=== PATIENT | female | born 1955 | race Caucasian/White ===

== ENCOUNTER → 2023-07-05 | Outpatient (CLI) | payer BC | END | disposition home or self-care (01) | LOC: LABWHC1 11:55 → EDSTATUS 11:59 | PROVIDERS: ATTEND Orthopaedic Surgery | DX: M25.561 Pain in right knee (principal); Z96.651 Presence of right artificial knee joint; T84.022D Instability of internal right knee prosthesis, subsequent encounter; Y82.9 Unspecified medical devices associated with adverse incidents | CPT/HCPCS: 36415; 85379; 85652; 86140 ==

== ENCOUNTER → 2023-08-21 | Outpatient (CLI) | payer BC ==
[2023-08-21 15:56] LABS: INR 0.9 (<1.2); Partial Thromboplastin Time 22.6 sec (22.0-30.0); Prothrombin Time 10.2 sec (10.0-12.5)
[2023-08-21 16:10] LABS: Bacteria,Urine Rare /hpf; Mucus,Urine Rare /hpf; RBC,Urine 6 /hpf (0-5); Squamous Epithelial Cell,Urine 11 /hpf (0-4); WBC,Urine >182 /hpf (0-5)
[2023-08-21 16:22] LABS: Appearance,Urine Cloudy (Clear); Bilirubin,Urine 1+ (Negative); Color,Urine Yellow; Glucose,Urine (UA) Negative (Negative); Ketones,Urine Negative (Negative); PH, Urine 5.5 (5.0-8.0); Protein,Urine Trace (Negative)
[2023-08-21 16:23] LABS: Blood,Urine Negative (Negative); Leukocyte Esterase,Urine Large (Negative); Nitrite,Urine Negative (Negative); Urobilinogen,Urine <2.0 mg/dL (<2.0)
[2023-08-21 22:14] LABS: HCT 43.2 % (37.2-46.3); MCH 30.5 pg (27.0-32.0); MCHC 32.4 d/dL (32.0-37.0); MCV 94.1 FL (80.0-97.0); Mean Platelet Volume 11.4 FL (9.5-12.2); NRBC Per 100 WBC 0 X 10*3/uL (0.00-0.01); Platelet Count 214 X 10*3/uL (140-440); RBC 4.59 X 10*6/uL (4.10-5.20)
[2023-08-22 07:59] LABS: ALT 19 U/L (8-44); AST 26 U/L (13-35); Albumin 4.4 d/dL (3.8-4.9); Albumin/Globulin Ratio 1.69 Ratio (1.60-3.17); Alkaline Phosphatase 84 U/L (41-126); BUN/Creat Ratio 24.67 Ratio (12.00-20.00); Blood Urea Nitrogen 22.2 mg/dL (9.0-27.0); Calcium 10.1 mg/dL (8.7-10.3); Carbon Dioxide 26.9 mmol/L (21.6-31.8); Chloride 99 mmol/L (96-109); Globulin 2.6 d/dL (1.6-3.3); Glucose 85 mg/dL (70-110); Potassium 4.4 mmol/L (3.5-5.5); Sodium 137 mmol/L (135-145); Total Bilirubin 0.3 mg/dL (0.3-1.2)
== END | disposition home or self-care (01) ==
LOC: LABPAT 14:11
PROVIDERS: ATTEND Orthopaedic Surgery
DX: Z01.812 Encounter for preprocedural laboratory examination (principal); Z96.653 Presence of artificial knee joint, bilateral
CPT/HCPCS: 36415; 80053; 81001; 85027; 85610; 85730; 87070

== ENCOUNTER 2023-09-08 07:30 | Inpatient (IN) | payer BC ==
[~2023-09-08 07:30] MED LIST: ACETAMINOPHEN TAB 500 MG TAB PO PRN; DEXAMETHASONE SOD PHOSPHATE 10 MG/ML 1 ML VIAL IV PRN; DEXAMETHASONE SOD PHOSPHATE 4 MG/ML 1 ML VIAL IV ONE; DOCUSATE 100 MG CAP PO PRN; FAMOTIDINE 20 MG/2 ML VIAL IVP PRN; HYDROmorphone 0.5 MG/0.5 ML SYRINGE IVP PRN; KETOROLAC 15 MG/ML 1 ML VIAL IVP PRN; LIDOCAINE 1% (10MG/ML) FOR IV START INTRADERMA PRN; MIDAZOLAM 2 MG/2 ML VIAL IV PRN; ONDANSETRON 4 MG/2 ML VIAL IVP ONE; ONDANSETRON 4 MG/2 ML VIAL IVP PRN; ROPIVACAINE/EPI/CLONIDINE/KET 50 ML SYRINGE MISCELLANE PRN; TRANEXAMIC 1,000 MG/100ML-NACL 1,000 MG in SALINE 1 100ML.BAG IV PRN; TRANEXAMIC 1,000 MG/100ML-NACL 1,000 MG in SALINE 1 100ML.BAG IVPB PRN; oxyCODONE ER 10 MG TAB.ER.12H PO PRN
[2023-09-08] MEDS: LACTATED RINGERS 1,000 ML IV SCH (09:21)
[2023-09-08] MEDS ORDERED: MIDAZOLAM 2 MG/2 ML VIAL IVP ONE (09:51)
[2023-09-08] MEDS ORDERED: VANCOMYCIN 1,000 MG VIAL MISCELLANE ONE (13:51)
--- NOTE | 2023-09-08 13:51 | FL ---
EXAMINATION TYPE: FL guidance operating room DATE OF EXAM: 09/08/2023 HISTORY: Fluoroscopy time Total dose area product (DAP) in uGy*m?, mGy*cm? (or similar): 0.6225 IMPRESSION: 1. Fluoroscopy time.
[2023-09-08] MEDS ORDERED: LACTATED RINGERS 1,000 ML IV ONE (13:58)
[2023-09-08] MEDS ORDERED: ONDANSETRON 4 MG/2 ML VIAL IVP PRN (14:52)
[2023-09-08] MEDS ORDERED: MAGNESIUM HYDROXIDE 2,400 MG/30 ML CUP PO PRN (14:52)
[2023-09-08] MEDS ORDERED: diazePAM 5 MG TAB PO PRN (14:52)
[2023-09-08] MEDS ORDERED: HYDROcodone/APAP 5-325MG 1 EACH TAB PO PRN (14:52)
[2023-09-08] MEDS ORDERED: NALOXONE 0.4 MG/ML 1 ML VIAL IV PRN (14:52)
[2023-09-08] MEDS ORDERED: bisacodyL 10 MG SUPP RECTAL PRN (14:52)
[2023-09-08] MEDS ORDERED: HYDROmorphone 0.5 MG/0.5 ML SYRINGE IVP ONE ×3 (14:58→15:30)
--- NOTE | 2023-09-08 15:12 | P.OP ---
Date of Procedure: 09/08/23 Preoperative Diagnosis: 1. Global instability right total knee replacement 2. BMI 39.4 Postoperative Diagnosis: 1. Global instability right total knee replacement 2. Aseptic loosening right tibial baseplate 3. BMI 39.4 Procedure(s) Performed: 1. Right revision total knee replacement, femoral and tibial components 2. Application of negative pressure incisional wound VAC, right knee, less than 50 cm, incision measuring 20 cm Modifier 22 for increased procedural complexity: Justification: This operation required significantly more time, work, and procedural complexity than a standard primary or revision total joint arthroplasty. Specifically the prior traumatic changes and or surgical procedure left a significantly altered surgical field with resultant scar tissue, adhesions, and altered anatomy that required a longer and more difficult and complex surgical dissection. This patient required: Extensile exposure requiring meticulous and extensive debridement due to prior failed surgery and contractures Technically demanding removal of prior hardware Significantly prolonged operative time Increased BMI (39.4) and challenging body habitus All of the above result in a physically and mentally challenging operative procedure that in my professional opinion necessitates a 30% increase above standard the schedule Implants: 1. Mchenry triathlon TS Size 5 femur with [id number] stem and 10-mm augments distal medial and lateral 2. Mchenry triathlon size #4 universal tibial baseplate with 12 x 50 mm stem and 5 mm augments medially and laterally 3. Mchenry size B tibial cone 4. Randolph size #4 PS polyethylene, 13 mm Anesthesia: CARMEN, regional Surgeon: Kadeem Hood Estimated Blood Loss (ml): 300 IV fluids (ml): 100 Pathology: other (Multiple deep cultures) Condition: stable Disposition: PACU Indications for Procedure: The patient is a very pleasant 68-year-old female who previously underwent a right total knee replacement. She initially did well but eventually developed pain and feelings of instability. She presented to my office to discuss treatment options. Her x-rays showed a cemented Lilliam implant with possible loosening of the tibial baseplate. Clinically she had global instability. Preoperatively inflammatory markers were obtained and both the CRP and ESR were normal. Her knee was also aspirated and there was no sign of infection. Given the global instability and possible loosening we discussed both an isolated polyethylene liner if the implants were well fixed versus a full revision if the implants were unstable or loose. She provided her verbal consent to go forward with surgery. We discussed potential risks and complications at length in the office. Risks discussed included: risks from anesthesia, superficial site surgical infection, acute and/or chronic periprosthetic joint infection, delayed wound healing, drainage, wound necrosis, instability, stiffness, stiffness requiring manipulation and/or revision surgery, damage to local blood vessels or nerves, aseptic loosening of the implants, extensor mechanism issues including disruption, patellar maltracking, avascular necrosis etc., continued or worsened knee pain, generalized dissatisfaction with surgical outcome, need for revision surgery, an inability to regain preinjury level of function, DVT, PE, other medical complications, and possibly loss of life or limb. The patient voiced their understanding that while these are the most common complications other less common complications are possible. They provided both their verbal and written consent to go forward with surgery Operative Findings: There is no sign of deep purulence or infection. Cultures were taken. The tibial baseplate was grossly loose. Description of Procedure: The patient was identified in preoperative holding and the correct right leg was marked with my initials. I reviewed the consent form with the patient and all of her questions were answered. Patient was given a block by anesthesia. She was then brought back to the operating room where general anesthetic was given. Preoperative antibiotics were also administered. Once the patient was under anesthesia I performed an exam of her right leg. She had global instability in extension, mid flexion, and flexion. The tourniquet was then applied to the proximal aspect of the right leg. The contralateral leg was secured to the table with foam, a blue towel, and tape. Positioners were placed to allow 90 of knee flexion. The leg was placed in a leg hermosillo and nonsterile drapes were applied followed by a presurgical Scrub with a chlorhexidine scrub brush. The right leg was then prepped and draped in the standard sterile fashion. Prior to starting surgery timeout was performed identifying the correct patient, operative extremity, and procedure. The patient's leg was then elevated, exsanguinated with an Esmarch bandage, and the tourniquet was inflated to 275 mmHg. I began by outlining the scar on the anterior aspect of her knee. Skin incision was made directly over the scar extending the incision proximally and distally for 1 cm. Normal tissue planes were identified proximally in a subfascial flap was created medially. A medial parapatellar arthrotomy was performed. There was a large martinez of clear synovial fluid. Posterior medial dissection was carried around the posteromedial tibia. The femur appeared to be well fixed but there was gross movement of the tibial baseplate. Due to the amount of gross motion of the tibial baseplate I elected to proceed with a fall on revision. Both the medial and lateral gutters were created with electrocautery down to the intermuscular septum. She was sent for culture. I then carefully develop the interval between the implant and cement on the femur and carefully removed the femoral implant with minimal bone loss. I then exposed the tibia and gently subluxed the baseplate anterior. I again debonded the baseplate taking care to develop the interface between the cement and baseplate. The leg was brought into extension and using a bone tamp I carefully removed the tibial baseplate. The tibia was then exposed. Remaining cement was removed with a quarter-inch osteotome taking care to not inadvertently remove bone. Access to the canal was gained and then I sequentially reamed until I had stability with the reamer. A cutting block was placed over the intramedullary reamer and a freshen up cut was made through the cut guide. I then sized the tibia to a size 4. The baseplate was appropriately rotated using the tibial tubercles are reference, pinned, and the heel was punched. The intramedullary guide was then placed back into the tibia and I reamed for a size B cone. Attention was then turned to the femur. I gained access to the intramedullary canal. I then sequentially reamed until stability was achieved. A cut guide was placed and a freshen up cut of the distal femur was then made. I sized the femur to a size 5. I then placed the distal cutting block matching rotation to the epicondylar access. I then made the anterior cut, posterior cut, chamfer cuts. Box cutting guide was then applied, pinned and made. A size 5 femur with a 100 mm stem trial was placed. I then trialed different poly-sizes and augment combinations until the knee was stable. All trial implants were removed. The wound was thoroughly irrigated with pulsatile lavage. Cement restrictors were placed in the tibia and femur. Final implants were dispensed. I then proceeded in a staged fashion starting with the tibia. Cement was placed into the tibia using a cement gun and pressurized once it had reached appropriate consistency. The tibial baseplate was gently tapped into place and held until the cement had hardened. The femur was then prepared and a second batch of cement was mixed. Once the cement had reached appropriate consistency it was pressurized using a cement gun into the femur. The femoral implant was then placed and gently tapped to fully seat. A trial polyliner was placed and the knee was held in extension until the femoral cement had hardened. I then trialed different poly-liners until I was happy with a 13 mm poly-. The trial poly-was removed and the wound was thoroughly irrigated. The final polyliner was gently tapped into place. The tourniquet was let down. All bleeders were controlled with electrocautery. The wound was thoroughly irrigated with pulsatile lavage. A 3 minute soak with dilute Betadine was performed. The knee was again irrigated with pulsatile lavage. A chlorhexidine solution was then used to irrigate the wound. A final rinse was performed with pulsatile lavage and sterile saline. 2 g of vancomycin powder was placed deep within the wound. A deep Hemovac drain was applied. The wound was then closed in layers. Due to this being a revision an incisional wound VAC was applied over the incision measuring 20 cm. A drain sponge was also applied. The drapes were taken down and I verified that all instrument, sponge, and sharp counts were correct. The patient was awoken from her anesthetic, transferred from the or table to a gurney, and brought to recovery having tolerated the procedure well. Plan: The patient is going to be admitted for pain control and IV antibiotics. She can weight-bear as tolerated on her right leg. She will receive 2 doses of postoperative Ancef and then will be transitioned to doxycycline. DVT prophylaxis with aspirin 81 mg twice a day. Internal medicine for perioperative medical management.
--- NOTE | 2023-09-08 15:46 | XR ---
EXAMINATION TYPE: XR knee limited, 2 views RT DATE OF EXAM: 09/08/2023 Comparison: None Clinical History: 68-year-old female Evaluation for Postop abnormality and alignment Findings: 2 views showing revision, hinged, short stem right total knee arthroplasty. Both distal femoral and p roximal tibial components of the prosthesis appear well seated without periprosthetic fracture. Align ment grossly anatomic. Anterior soft tissue swelling with scattered soft tissue air as well as intra- articular air related to recent operation. A surgical drain is also in place. Impression: Uncomplicated postoperative appearance of the revision, hinged, short stemmed, right total knee arthr oplasty.
[2023-09-08] MEDS: HYDROmorphone 1 MG/ML 1 ML SYRINGE IVP PRN (16:50)
[2023-09-08] MEDS: SODIUM CHLORIDE 0.9% 1,000 ML IV SCH (16:51)
--- NOTE | 2023-09-08 18:17 | P.HPIM ---
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 Patient seen and examined at bedside. She is having some lightheadedness when going to the bathroom. She does have some postoperative nausea as well but has not been vomiting. She denies any chest pain or shortness of breath. She has no personal history of venous thromboembolism, however her brother has a history of blood clots and was found to have prothrombin 2010 a mutation and therefore she was tested and also found to have mutation. Vital signs reviewed General: nontoxic, no distress, appears at stated age Derm: warm, dry Cardiovascular: S1S2 reg, no murmur Lungs: clear to auscultation bilateral, no rhonchi, no rales, no wheeze, no accessory muscle use Abdominal: soft, nontender to palpation, no guarding, no appreciable organomegaly, normal bowel sounds Ext: no gross muscle atrophy, Hemovac in place right knee Neuro: CN II-XII grossly intact, no focal neuro deficits Psych: Alert, oriented, appropriate affect Assessment/Plan: 68-year-old female status post right total knee arthroplasty Patient with known 2010a mutation -Suggest possible low-dose Eliquis at 2.5 mg by mouth twice daily for postop DVT prophylaxis given the patient's inherited thrombophilia condition. Awaiting call back for orthopedic surgery. Patient currently treated with aspirin 81 mg twice daily -Discussed with patient signs and symptoms of DVT including worsening swelling, redness, erythema, and calf pain. Hypertension Dyslipidemia -Resume Lopressor 50 mg twice daily -Atorvastatin 40 mg daily Data Review: Preoperative labs reviewed with hemoglobin 14, hematocrit 0.9 Thank you for allowing us to participate in the care of this pleasant patient. Do not hesitate to contact us with questions. Someone can be reached from the [facility] hospitalist group all hours of the day at [phone] or via [employer] This dictation was prepared using [employer] voice recognition software. Though every attempt is made to correct errors during dictation some may still exist. Past Medical History Past Medical History: Hyperlipidemia, Hypertension, Osteoarthritis (OA) Additional Past Medical History / Comment(s): gene variant that makes pt. susceptible to blood clots head, neck, legs - prothrombin 56823W mutation (tested 2021), no blood thinner needed, sinus H/A, heart palpitaions - sees Dank Busby - treated w/ metoprolol History of Any Multi-Drug Resistant Organisms: None Reported Past Surgical History: Hysterectomy, Orthopedic Surgery Additional Past Surgical History / Comment(s): sinus surgery 30 yrs. ago, Rt. TKA 2015, 7-8 foot surgeries over 40 yrs. - most recent Lt. foot hardware removal 2021 Past Anesthesia/Blood Transfusion Reactions: No Reported Reaction, Postoperative Nausea & Vomiting (PONV) Past Psychological History: No Psychological Hx Reported Smoking Status: Former smoker Past Alcohol Use History: Occasional Past Drug Use History: None Reported - Past Family History Brother(s) Family Medical History: Deep Vein Thrombosis (DVT) Mother Family Medical History: Dementia, Deep Vein Thrombosis (DVT), Hypertension Additional Family Medical History / Comment(s): brain aneurysm. age 78 Father Family Medical History: Coronary Artery Disease (CAD), Liver Disease Additional Family Medical History / Comment(s): CABG X3. age 82 Medications and Allergies Home Medications Medication Instructions Recorded Confirmed Type Acetaminophen [Tylenol Arthritis] 1 tab PO Q6HR PRN 09/05/23 09/08/23 History Ascorbic Acid [Vitamin C] 4 tab PO DAILY 09/05/23 09/08/23 History Aspirin 81 mg PO DAILY 09/05/23 09/08/23 History Biotin [Fivv-Ejwj-Thkdu] 10,000 mcg PO DAILY 09/05/23 09/08/23 History Calcium Carbonate/Vitamin D3 2 tab PO DAILY 09/05/23 09/08/23 History [Calcium 500 mg Chewable Tablet] Etodolac [Lodine] 400 mg PO BID 09/05/23 09/08/23 History Metoprolol Tartrate [Lopressor] 50 mg PO BID 09/05/23 09/08/23 History Multivitamin [Multivitamins Adult 1 tab PO DAILY 09/05/23 09/08/23 History Gummies] Mupirocin [Bactroban Nasal 1 applic TOPICAL TID 09/05/23 09/08/23 History Ointment 2% (with applicator)] Rosuvastatin [Crestor] 20 mg PO DAILY 09/05/23 09/08/23 History Allergies Allergy/AdvReac Type Severity Reaction Status Date / Time cephalexin [From Keflex] Allergy Unknown Verified 09/08/23 09:21 latex Allergy Rash/Hives Verified 09/08/23 09:21 Physical Exam Osteopathic Statement: *. No significant issues noted on an osteopathic structural exam other than those noted in the History and Physical/Consult. Vitals: Vital Signs Temp Pulse Resp BP BP Pulse Ox 09/08/23 15:55 90 16 101/49 97 09/08/23 15:40 80 16 104/51 97 09/08/23 15:25 80 16 108/51 97 09/08/23 15:10 89 16 112/56 97 09/08/23 14:55 100 16 110/55 96 09/08/23 14:40 119 H 18 121/86 96 09/08/23 10:00 59 L 16 129/63 97 09/08/23 09:17 97.3 F L 64 17 133/68 97 Intake and Output 09/08/23 09/08/23 09/08/23 06:59 14:59 22:59 Intake Total 1650 Output Total 300 Balance 1350 Intake: IV 1650 Output: Estimated Blood Loss 300 Other: Voiding Method Bedside Commode # Voids 1 Weight 117.4 kg 117.4 kg Thrombosis Risk Factor Assmnt - Choose All That Apply Any of the Below Risk Factors Present?: Yes Each Factor Represents 1 point: Obesity (BMI >25) Each Risk Factor Represents 2 Points: Age 61-74 years, Major surgery Each Risk Factor Represents 3 Points: Family history of DVT/PE, Positive Prothrombin 56871L Each Risk Factor Represents 5 Points: Elective major lower extremity arthoplasty Thrombosis Risk Factor Assessment Total Risk Factor Score: 16 Thrombosis Risk Factor Assessment Level: High Risk
[2023-09-08] MEDS: HYDROcodone/APAP 10-325MG 1 EACH TAB PO PRN (20:21)
[2023-09-08] MEDS ORDERED: METOCLOPRAMIDE 5 MG/ML 2 ML VIAL IVP STA (20:27)
[2023-09-08] MEDS: BENZOCAINE/MENTHOL LOZENG 1 EACH LOZENGE MUCOUS MEM PRN (20:35)
[2023-09-08] MEDS ORDERED: ASPIRIN 81 MG PO SCH (21:00)
[2023-09-08] MEDS: SENNOSIDES-DOCUSATE SODIUM 1 EACH TAB PO SCH (21:41)
[2023-09-09] MEDS: SODIUM CHLORIDE 0.9% 1,000 ML IV SCH (02:02)
[2023-09-09] MEDS: HYDROmorphone 1 MG/ML 1 ML SYRINGE IVP PRN ×2 (02:12→10:00)
[2023-09-09] MEDS: METOPROLOL TARTRATE 50 MG TAB PO SCH ×3 (02:40→21:07)
[2023-09-09] MEDS: LACTATED RINGERS 1,000 ML IV SCH (04:49)
[2023-09-09] MEDS: HYDROcodone/APAP 10-325MG 1 EACH TAB PO PRN ×3 (06:32→18:53)
[2023-09-09 07:38] LABS: Basophils % (A) 0 %; Eosinophils % (A) 0 %; HCT 33.2 % (34.0-46.0); HGB 11.2 gm/dL (11.4-16.0); Lymphocytes # (A) 0.9 k/uL (1.0-4.8); Lymphocytes % (A) 7 %; MCH 31.6 pg (25.0-35.0); MCHC 33.6 g/dL (31.0-37.0); Mean Platelet Volume 8.7; Monocytes # (A) 0.9 k/uL (0-1.0); Monocytes % (A) 7 %; Neutrophils # (A) 11.4 k/uL (1.3-7.7); Neutrophils % (A) 86 %; Platelet Count 165 k/uL (150-450); RBC 3.53 m/uL (3.80-5.40); RDW 13.1 % (11.5-15.5); WBC 13.3 k/uL (3.8-10.6)
[2023-09-09] MEDS: APIXABAN 2.5 MG TABLET PO SCH ×2 (08:27→21:22)
[2023-09-09] MEDS: ATORVASTATIN 40 MG TAB PO SCH (08:27)
--- NOTE | 2023-09-09 09:10 | P.PN ---
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 Patient seen and examined at bedside. She is doing well and pain is controlled. Was able to eat this morning. Wants to get to chair. Vital signs reviewed General: nontoxic, no distress, appears at stated age Cardiovascular: S1S2 reg, no murmur, positive posterior tibial pulse bilateral, Lungs: Decreased bs bilateral, no rhonchi, no rales , no accessory muscle use Abdominal: soft, nontender to palpation, no guarding, no appreciable organomegaly Ext: no gross muscle atrophy, 1+ edema right LE, no contractures Neuro: CN II-XI grossly intact, no focal neuro deficits Psych: Alert, oriented, appropriate affect Assessment/Plan: Pt is a 68-year-old female status post right total knee arthroplasty Patient with known 2010a mutation - Eliquis 2.5 mg PO BID for DVT prophylaxis Acute blood loss anemia, anticipated outcome of surgery - follow CBC - pre-op Hgb 14. Will repeat in AM Hypertension Dyslipidemia -Lopressor 50 mg twice daily -Atorvastatin 40 mg daily Data Review: Labs reviewed. Includes CBC was remarkable for white blood cell count 13.3, hemoglobin 11.2 Thank you for allowing us to participate in the care of this pleasant patient. Do not hesitate to contact us with questions. Someone can be reached from the [facility] hospitalist group all hours of the day at [phone] or via [employer]. This dictation was prepared using [employer] voice recognition software. Though every attempt is made to correct errors during dictation some may still exist. Objective - Vital Signs Vital signs: Vital Signs Temp 97.6 F 09/09/23 02:00 Pulse 91 09/09/23 02:00 Resp 16 09/09/23 02:00 BP 110/63 09/09/23 02:00 Pulse Ox 97 09/09/23 02:00 FiO2 Intake & Output 09/08/23 09/09/23 09/09/23 18:59 06:59 18:59 Intake Total 1650 Output Total 300 470 Balance 1350 -470 Weight 117.4 kg Intake: IV 1650 Output: Drainage 220 Right 220 Urine 250 Estimated Blood Loss 300 Other: Voiding Method Bedside Commode # Voids 1 2 - Labs CBC & Chem 7: 09/09/23 06:55 Labs: Abnormal Lab Results - Last 24 Hours (Table) 09/09/23 Range/Units 06:55 WBC 13.3 H (3.8-10.6) k/uL RBC 3.53 L (3.80-5.40) m/uL Hgb 11.2 L (11.4-16.0) gm/dL Hct 33.2 L (34.0-46.0) % Neutrophils # 11.4 H (1.3-7.7) k/uL Lymphocytes # 0.9 L (1.0-4.8) k/uL
--- NOTE | 2023-09-09 09:11 | P.PN ---
Subjective Progress Note Date: 09/09/23 Patient is doing well this morning. She has some pain in her right knee but otherwise without complaints. She denies chest pain or shortness of breath. Objective - Vital Signs Vital signs: Vital Signs Temp 97.6 F 09/09/23 02:00 Pulse 91 09/09/23 02:00 Resp 16 09/09/23 02:00 BP 110/63 09/09/23 02:00 Pulse Ox 97 09/09/23 02:00 FiO2 Intake & Output 09/08/23 09/09/23 09/09/23 18:59 06:59 18:59 Intake Total 1650 Output Total 300 470 Balance 1350 -470 Weight 117.4 kg Intake: IV 1650 Output: Drainage 220 Right 220 Urine 250 Estimated Blood Loss 300 Other: Voiding Method Bedside Commode # Voids 1 2 - Exam Patient is resting comfortably in bed. She is alert and able to answer questions. A focused exam of the right lower extremity was conducted. On inspection there is no intact incisional wound VAC with good seal. Her Hemovac drain was removed without difficulty. Her thigh and calf are soft. Distally she is able to actively plantarflex and dorsiflex her ankle and her toes. - Labs CBC & Chem 7: 09/09/23 06:55 Labs: Abnormal Lab Results - Last 24 Hours (Table) 09/09/23 Range/Units 06:55 WBC 13.3 H (3.8-10.6) k/uL RBC 3.53 L (3.80-5.40) m/uL Hgb 11.2 L (11.4-16.0) gm/dL Hct 33.2 L (34.0-46.0) % Neutrophils # 11.4 H (1.3-7.7) k/uL Lymphocytes # 0.9 L (1.0-4.8) k/uL Assessment and Plan Assessment: Postoperative day #1 status post right revision knee replacement for aseptic loosening of the tibial baseplate BMI 39.4 History of prothrombin mutation, increased risk of VTE Plan: 1. Weightbearing as tolerated right lower extremity, up with assistance and a walker 2. DVT prophylaxis with Eliquis 2.5 mg BID x 4 weeks given her history 3. Antibiotic prophylaxis with Ancef 2 doses followed by doxycycline 100 mg twice a day given her history of revision surgery. I have a low index of suspicion of periprosthetic joint infection but we will follow cultures taken intraoperatively. If these become positive we'll consult infectious disease for antibiotic recommendations 4. Appreciate IM assistance with perioperative medical management 5. Physical therapy for gait training and mobilization 6. Dispo: We'll plan on keeping the patient until tomorrow given the extensive nature of her revision surgery for continued pain control and antibiotics. We will monitor her progress and if she does well we'll plan for discharge home tomorrow.
[2023-09-09] MEDS: hydrOXYzine pamoate 25 MG CAP PO PRN (10:01)
[2023-09-09] MEDS: BENZOCAINE/MENTHOL LOZENG 1 EACH LOZENGE MUCOUS MEM PRN ×2 (10:40→17:50)
[2023-09-09] MEDS ORDERED: ARTIFICIAL TEARS-HYPROMELLOSE DROPS 15 ML BTL BOTH EYES PRN (11:44)
--- NOTE | 2023-09-09 19:13 | P.ANPRN ---
Procedure Note - Anesthesia - Nerve Block Performed Right Adductor Canal Single Time Out Performed: Yes Date of Procedure: 09/08/23 Procedure Start Time: :50 Procedure Stop Time: :53 Location of Patient: PreOp Indication: Acute Post-Operative Pain, Requested by Surgeon Sedation Type: Sedate with meaningful contact maintained Preparation: Sterile Prep Position: Supine Needle Types: Pajunk Needle Gauge: 21 Ultrasound used to visualize needle placement: Yes Ultrasound used to observe medication spread: Yes Blood Aspirated: No Pain Paresthesia on Injection Noted: No Resistance on Injection: Normal Image Stored and Saved: Yes Events: Uneventful and Well Tolerated (Ropivacaine 0.5% 30 mL plus dexamethasone 4 mg)
--- NOTE | 2023-09-09 19:15 | P.ANPRN ---
Procedure Note - Anesthesia - Nerve Block Performed Right [place] Single Time Out Performed: Yes Date of Procedure: 09/08/23 Procedure Start Time: :54 Procedure Stop Time: :55 Location of Patient: PreOp Indication: Acute Post-Operative Pain, Requested by Surgeon Sedation Type: Sedate with meaningful contact maintained Preparation: Sterile Prep Position: Supine Needle Types: Pajunk Needle Gauge: 21 Ultrasound used to visualize needle placement: Yes Ultrasound used to observe medication spread: Yes Blood Aspirated: No Pain Paresthesia on Injection Noted: No Resistance on Injection: Normal Image Stored and Saved: Yes Events: Uneventful and Well Tolerated (Ropivacaine 0.5% 25 mL plus dexamethasone 4 mg)
[2023-09-09] MEDS: SENNOSIDES-DOCUSATE SODIUM 1 EACH TAB PO SCH (21:22)
[2023-09-09] MEDS: DOXYCYCLINE 100 MG CAP PO SCH (21:22)
[2023-09-10] MEDS: BENZOCAINE/MENTHOL LOZENG 1 EACH LOZENGE MUCOUS MEM PRN (00:52)
[2023-09-10] MEDS: LACTATED RINGERS 1,000 ML IV SCH (06:11)
[2023-09-10 08:25] LABS: HCT 33.9 % (34.0-46.0); HGB 11.2 gm/dL (11.4-16.0); MCH 31.3 pg (25.0-35.0); MCHC 33.1 g/dL (31.0-37.0); MCV 94.3 fL (80.0-100.0); Platelet Count 118 k/uL (150-450); RDW 13.2 % (11.5-15.5); WBC 8.3 k/uL (3.8-10.6)
--- NOTE | 2023-09-10 08:25 | P.PN ---
Subjective Progress Note Date: 09/10/23 Patient is complaining of pain in her right knee this morning. She states that yesterday she did very well and may have overdone it with physical therapy. His morning she is complaining of pain in the right knee. She also has a sore throat which she attributed to her breathing tube during surgery. She denies chest pain or shortness of breath. Objective - Vital Signs Vital signs: Vital Signs Temp 99.0 F 09/10/23 01:50 Pulse 96 09/10/23 01:50 Resp 17 09/10/23 01:50 BP 102/58 09/10/23 02:58 Pulse Ox 94 L 09/10/23 01:50 FiO2 Intake & Output 09/09/23 09/10/23 09/10/23 18:59 06:59 18:59 Output Total 150 Balance -150 Output: Urine 150 Other: # Voids 4 - Exam Patient is resting comfortably in bed. She is alert and able to answer questions. A focused exam of the right lower extremity was conducted. On inspection she has an intact incisional wound VAC with good seal. Her drain sponges intact. There is moderate swelling in the knee. Her thigh and calf are soft. Femoral nerve function is intact. She is able to actively plantarflex and dorsiflex her ankle and her toes. - Labs CBC & Chem 7: 09/09/23 06:55 Labs: Microbiology - Last 24 Hours (Table) 09/08/23 14:15 Gram Stain - Preliminary Knee - Right Tissue Culture - Preliminary 09/08/23 14:15 Acid Fast Bacilli Smear - Preliminary Knee - Right Assessment and Plan Assessment: Postoperative day #2 status post right revision knee replacement Plan: Continue treatment as outlined yesterday. The patient has increased pain in her knee since her block has worn off which is not surprising given the extent of her revision surgery. We will work on transitioning her from IV to oral pain medications today. I also encouraged her to mobilize with therapy and get into a chair. Due to her pain we'll plan on keeping her until tomorrow. If things change in her pain improves and would like to go home later this afternoon that is fine as well.
[2023-09-10] MEDS ORDERED: SODIUM CHLORIDE 0.9% 500 ML 500 ML IV ONE (08:35)
[2023-09-10] MEDS: HYDROcodone/APAP 10-325MG 1 EACH TAB PO PRN ×2 (10:46→17:11)
[2023-09-10] MEDS: DOXYCYCLINE 100 MG CAP PO SCH ×2 (10:46→19:57)
[2023-09-10] MEDS: ATORVASTATIN 40 MG TAB PO SCH (10:47)
[2023-09-10] MEDS: hydrOXYzine pamoate 25 MG CAP PO PRN ×2 (10:47→17:11)
[2023-09-10] MEDS: APIXABAN 2.5 MG TABLET PO SCH ×2 (10:47→19:57)
--- NOTE | 2023-09-10 13:13 | P.PN ---
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 Patient seen and examined at bedside. She continues to feel slightly lightheaded today as well as flushed and some tightness in her neck. She also complains of some knee pain. She is worried about her blood pressure being slightly low. 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 Borderline low blood pressures hx Hypertension -Check CBC in a.m. as well as basic metabolic profile -Decrease metoprolol to 25 mg twice daily. She did not receive any metoprolol yesterday as it was held based on her parameters. These parameters will continue -Sodium chloride 500 mL bolus now Dyslipidemia -Atorvastatin 40 mg daily Data Review: Labs reviewed from today CBC shows a hemoglobin of 11.2, platelets of 118 Thank you for allowing us to participate in the care of this pleasant patient. Do not hesitate to contact us with questions. Someone can be reached from the [facility] hospitalist group all hours of the day at [phone] or via [employer]. This dictation was prepared using [email or web address] voice recognition software. Though every attempt is made to correct errors during dictation some may still exist. Objective - Vital Signs Vital signs: Vital Signs Temp 99.1 F 09/10/23 07:16 Pulse 92 09/10/23 07:16 Resp 17 09/10/23 07:16 BP 91/50 09/10/23 07:16 Pulse Ox 97 09/10/23 07:16 FiO2 Intake & Output 09/09/23 09/10/23 09/10/23 18:59 06:59 18:59 Output Total 150 Balance -150 Output: Urine 150 Other: # Voids 4 - Labs CBC & Chem 7: 09/10/23 06:12 Labs: Abnormal Lab Results - Last 24 Hours (Table) 09/10/23 Range/Units 06:12 RBC 3.60 L (3.80-5.40) m/uL Hgb 11.2 L (11.4-16.0) gm/dL Hct 33.9 L (34.0-46.0) % Plt Count 118 L (150-450) k/uL Microbiology - Last 24 Hours (Table) 09/08/23 14:15 Gram Stain - Preliminary Knee - Right Tissue Culture - Preliminary 09/08/23 14:15 Acid Fast Bacilli Smear - Preliminary Knee - Right
[2023-09-10] MEDS: METOPROLOL TARTRATE 25 MG TAB PO SCH ×2 (13:39→19:57)
[2023-09-10] MEDS: FLUTICASONE 50MCG/SPRAY NASAL 16GM EA NOSTRIL SCH (17:12)
[2023-09-10] MEDS: SENNOSIDES-DOCUSATE SODIUM 1 EACH TAB PO SCH (19:57)
[2023-09-11] MEDS: HYDROcodone/APAP 10-325MG 1 EACH TAB PO PRN ×4 (00:02→22:09)
[2023-09-11] MEDS: LACTATED RINGERS 1,000 ML IV SCH (06:03)
[2023-09-11 07:21] LABS: HCT 32.4 % (34.0-46.0); HGB 10.9 gm/dL (11.4-16.0); MCH 31.6 pg (25.0-35.0); MCHC 33.6 g/dL (31.0-37.0); Mean Platelet Volume 8.9; Platelet Count 146 k/uL (150-450); RBC 3.45 m/uL (3.80-5.40); WBC 7.6 k/uL (3.8-10.6)
[2023-09-11 07:37] LABS: African American GFR (CKD) >90 (>60 ml/min/1.73 sqM); Anion Gap 7 mmol/L; Blood Urea Nitrogen 18 mg/dL (7-17); Calcium 8.6 mg/dL (8.4-10.2); Carbon Dioxide 22 mmol/L (22-30); Chloride 105 mmol/L (98-107); Glucose 99 mg/dL (74-99); Non-African American GFR(CKD) >90 (>60 ml/min/1.73 sqM); Potassium 4.3 mmol/L (3.5-5.1); Sodium 134 mmol/L (137-145)
--- NOTE | 2023-09-11 07:56 | P.PN ---
Subjective Progress Note Date: 09/11/23 The patient still continues to have in her right knee although it is improving. She still has concerns about low blood pressure. She denies chest pain, shortness of breath, or feeling lightheaded. She is otherwise doing well. Objective - Vital Signs Vital signs: Vital Signs Temp 98.3 F 09/11/23 00:27 Pulse 91 09/11/23 00:27 Resp 16 09/11/23 00:27 BP 108/72 09/11/23 00:27 Pulse Ox 93 L 09/11/23 00:27 FiO2 Intake & Output 09/10/23 09/11/23 09/11/23 18:59 06:59 18:59 Intake Total 1200 Balance 1200 Intake: Intake, IV Titration 1200 Amount Lactated Ringers 1,000 ml 700 @ 20 mls/hr IV .Q24H [facility] Rx#:[id number] Sodium Chloride 0.9% 500 500 ml 500 ml @ 999 mls/hr IV .Q31M [facility] Rx#:[id number] Other: # Voids 3 - Exam Patient is sitting up at bedside in the chair. She is alert and able to answer questions. She is in no apparent distress. A focused exam of the right lower extremity was conducted. Her incisional wound VAC is intact with good seal. The dressing over her drain site is intact with no drainage. Her thigh and calf are soft. She is able to actively dorsiflex and plantarflex her ankle and her toes. - Labs CBC & Chem 7: 09/11/23 07:02 09/11/23 07:02 Labs: Abnormal Lab Results - Last 24 Hours (Table) 09/10/23 09/11/23 09/11/23 Range/Units 06:12 07:02 07:02 RBC 3.60 L 3.45 L (3.80-5.40) m/uL Hgb 11.2 L 10.9 L (11.4-16.0) gm/dL Hct 33.9 L 32.4 L (34.0-46.0) % Plt Count 118 L 146 L (150-450) k/uL Sodium 134 L (137-145) mmol/L BUN 18 H (7-17) mg/dL Microbiology - Last 24 Hours (Table) 09/08/23 14:15 Gram Stain - Preliminary Knee - Right Tissue Culture - Preliminary Assessment and Plan Assessment: Postoperative day #3 status post right revision total knee replacement for aseptic tibial baseplate loosening and global instability Plan: The patient is slowly improving. Her pain is improving on oral medications. Cultures have been negative and I've a low suspicion for infection. We will continue on doxycycline unless her cultures become positive. Appreciate internal medicine and physical therapy assistance. We will plan on keeping her for continued pain management and physical therapy given the extent of her revision surgery.
[2023-09-11] MEDS: APIXABAN 2.5 MG TABLET PO SCH ×2 (08:55→20:30)
[2023-09-11] MEDS: DOXYCYCLINE 100 MG CAP PO SCH ×2 (08:55→20:30)
[2023-09-11] MEDS: METOPROLOL TARTRATE 25 MG TAB PO SCH (08:55)
[2023-09-11] MEDS: ATORVASTATIN 40 MG TAB PO SCH (08:56)
[2023-09-11] MEDS: FLUTICASONE 50MCG/SPRAY NASAL 16GM EA NOSTRIL SCH (08:58)
--- NOTE | 2023-09-11 13:23 | P.PN ---
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 Patient seen and examined at bedside. She reports pain in her right knee. She denies any dizziness, chest pain, SOB or palpitations. CBC Hg 10.9 Plt 146. BMP Na 134, BUN 18. 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 Borderline low blood pressures hx Hypertension -Asymptomatic -Decrease metoprolol to 12.5 mg twice daily. Dyslipidemia -Atorvastatin 40 mg daily Data Review: CBC and BMP as above. Thank you for allowing us to participate in the care of this pleasant patient. Do not hesitate to contact us with questions. Someone can be reached from the [facility] hospitalist group all hours of the day at [phone] or via [email or web address]. Objective - Vital Signs Vital signs: Vital Signs Temp 99.1 F 09/11/23 07:09 Pulse 50 L 09/11/23 07:09 Resp 18 09/11/23 07:09 BP 98/65 09/11/23 07:09 Pulse Ox 94 L 09/11/23 07:09 FiO2 Intake & Output 09/10/23 09/11/23 09/11/23 18:59 06:59 18:59 Intake Total 1200 Balance 1200 Intake: Intake, IV Titration 1200 Amount Lactated Ringers 1,000 ml 700 @ 20 mls/hr IV .Q24H [facility] Rx#:[id number] Sodium Chloride 0.9% 500 500 ml 500 ml @ 999 mls/hr IV .Q31M [facility] Rx#:[id number] Other: Voiding Method Toilet # Voids 3 2 - Labs CBC & Chem 7: 09/11/23 07:02 09/11/23 07:02 Labs: Abnormal Lab Results - Last 24 Hours (Table) 09/11/23 09/11/23 Range/Units 07:02 07:02 RBC 3.45 L (3.80-5.40) m/uL Hgb 10.9 L (11.4-16.0) gm/dL Hct 32.4 L (34.0-46.0) % Plt Count 146 L (150-450) k/uL Sodium 134 L (137-145) mmol/L BUN 18 H (7-17) mg/dL Microbiology - Last 24 Hours (Table) 09/08/23 14:15 Gram Stain - Preliminary Knee - Right Tissue Culture - Preliminary
[2023-09-11] MEDS: BENZOCAINE/MENTHOL LOZENG 1 EACH LOZENGE MUCOUS MEM PRN (19:55)
[2023-09-11] MEDS: SENNOSIDES-DOCUSATE SODIUM 1 EACH TAB PO SCH (20:30)
[2023-09-11] MEDS: METOPROLOL TARTRATE 12.5 MG TAB PO SCH (20:31)
[2023-09-11] MEDS: hydrOXYzine pamoate 25 MG CAP PO PRN (22:10)
[2023-09-12] MEDS: HYDROcodone/APAP 10-325MG 1 EACH TAB PO PRN ×3 (05:00→20:04)
[2023-09-12] MEDS: LACTATED RINGERS 1,000 ML IV SCH (05:38)
[2023-09-12] MEDS: DOXYCYCLINE 100 MG CAP PO SCH ×2 (08:15→20:04)
[2023-09-12] MEDS: FLUTICASONE 50MCG/SPRAY NASAL 16GM EA NOSTRIL SCH (08:15)
[2023-09-12] MEDS: ATORVASTATIN 40 MG TAB PO SCH (08:15)
[2023-09-12] MEDS: METOPROLOL TARTRATE 12.5 MG TAB PO SCH ×2 (08:15→20:04)
[2023-09-12] MEDS: APIXABAN 2.5 MG TABLET PO SCH ×2 (08:15→20:04)
--- NOTE | 2023-09-12 10:41 | P.PN ---
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 She is currently admitted under orthopedic surgery team status post right total knee replacement. Surgical procedure was completed on 09/08/[address] Hood. We have been consulted for medical management throughout patient's hospitalization. Physical exam: Patient seen and fully evaluated at the bedside this morning. Patient complaining of constipation. Patient reports last bowel movement was prior to surgery. She does report passing flatus and denies abdominal pain. Vital signs reviewed and stable. General: Nontoxic, no distress and appears stated age. Derm: Skin warm and dry, normal coloration for ethnicity. Head: Atraumatic, normocephalic and symmetric. Eyes: EOMs intact, no lid lag, and anicteric sclera Mouth: no lip lesions, mucus membranes moist Cardiovascular: regular rate and rhythm with normal S1S2, no murmur, positive posterior tibial pulses bilaterally, and cap refill < 2 seconds. Lungs: Respirations even, regular, and unlabored on room air. Lungs CTA bilaterally, no rhonchi, no rales, no wheezing, and no accessory muscle usage. Abdominal: soft, nontender to palpation, no guarding, no appreciable organomegaly Ext: ROM intact. No gross muscle atrophy, no edema, no contractures Neuro: Speech clear, face symmetrical and CN II-XII grossly intact with no noted focal neuro deficits Psych: Alert and oriented to person, place, time, and situation. Appropriate and pleasant affect. Assessment and Plan of Care: Constipation Patient given milk of magnesia and this morning, discussed with RN patient to receive Dulcolax suppository. Continue with aggressive bowel regimen, monitor I's and O's for resolution of constipation. Acute postoperative blood loss anemia Preoperative hemoglobin of 14.0 postoperative hemoglobin was trended and stable at 11.2, 11.2, and 10.9. This is a staple and expected finding. No active bleeding, no need for further monitoring or interventions. Hypertension Blood pressure stable on current medication regimen. Patient to continue with metoprolol 12.5 mg twice daily Hyperlipidemia Patient to continue with rosuvastatin 20 mg daily. Status post right total knee arthroplasty Management per primary admitting orthopedic surgery team including DVT prophylaxis, pain management, wound/dressing care, weightbearing, and PT/OT. Data reviewed: Vital signs reviewed. Blood pressure 102/68, heart rate 85, respiratory rate 14, temp 97.4F, SpO2 98% on room air. Patient is medically optimized for discharge with no further needs once cleared by primary admitting orthopedic surgery team. Thank you for allowing us to participate in the care of this pleasant patient. Do not hesitate to contact us with questions. Someone can be reached from the [facility] hospitalist group all hours of the day at [phone] or via [email or web address]. Patient was seen independently by Nurse Pracitioner. This document was prepared using [employer] dictation software. Please allow for errors in surface plate finisher, while rare they do occur. Objective - Vital Signs Vital signs: Vital Signs Temp 97.4 F L 09/12/23 07:07 Pulse 85 09/12/23 07:07 Resp 14 09/12/23 07:07 BP 102/68 09/12/23 07:07 Pulse Ox 98 09/12/23 07:07 FiO2 Intake & Output 09/11/23 09/12/23 09/12/23 18:59 06:59 18:59 Intake Total 1080 Balance 1080 Intake: Oral 1080 Other: Voiding Method Toilet # Voids 4 1 - Labs CBC & Chem 7: 09/11/23 07:02 09/11/23 07:02 Labs: Microbiology - Last 24 Hours (Table) 09/08/23 14:15 Gram Stain - Preliminary Knee - Right Tissue Culture - Preliminary
--- NOTE | 2023-09-12 17:46 | P.PN ---
Subjective Progress Note Date: 09/12/23 Overall the patient is doing much better this evening. Her pain is significantly improved. Her main issue today has been urinary retention. Objective - Vital Signs Vital signs: Vital Signs Temp 98.6 F 09/12/23 13:50 Pulse 86 09/12/23 13:50 Resp 18 09/12/23 13:50 BP 113/72 09/12/23 13:50 Pulse Ox 96 09/12/23 13:50 FiO2 Intake & Output 09/11/23 09/12/23 09/12/23 18:59 06:59 18:59 Intake Total 1080 Balance 1080 Intake: Oral 1080 Other: Voiding Method Toilet # Voids 4 1 - Exam The patient is sitting up comfortably in a chair next to her bed. She is alert and able to answer questions. A focused exam of the right lower stomach was conducted. On inspection she has an intact incisional wound VAC with good seal. Her thigh and calf are soft. Her drain sponges intact. She is able to actively plantarflex and dorsiflex her ankle and her toes. - Labs CBC & Chem 7: 09/11/23 07:02 09/11/23 07:02 Labs: Microbiology - Last 24 Hours (Table) 09/08/23 14:15 Gram Stain - Preliminary Knee - Right Tissue Culture - Preliminary Assessment and Plan Assessment: Postoperative day #4 status post right revision total knee arthroplasty aseptic loosening and global instability Plan: The patient can history improved. Her pain is much better. She's been ambulating without too much difficulty. We're going to keep her one more night due to urinary retention. If she is doing well we'll plan on discharge home tomorrow.
[2023-09-12] MEDS: SENNOSIDES-DOCUSATE SODIUM 1 EACH TAB PO SCH (20:04)
[2023-09-12] MEDS: hydrOXYzine pamoate 25 MG CAP PO PRN (20:08)
[2023-09-13] MEDS: HYDROcodone/APAP 10-325MG 1 EACH TAB PO PRN ×2 (05:08→11:04)
[2023-09-13] MEDS: LACTATED RINGERS 1,000 ML IV SCH (06:29)
--- NOTE | 2023-09-13 07:33 | P.DS ---
Providers Date of admission: 09/08/23 08:39 Attending physician: Kadeem Hood Consults: 09/08/23 14:52 Consult Physician Routine Consulting Provider: Kristen Yee Consult Reason/Comments: post op medical management Do you want consulting provider notified?: Yes Primary care physician: Davie Youngblood MD Hospital Course: The patient is a very pleasant 68-year-old female who was admitted last Moi following a right revision knee replacement. Following surgery she was admitted to the surgical floor in stable condition. She received 2 doses of IV antibiotics and was then started on oral doxycycline. Her revision appeared to be aseptic and cultures remained negative throughout the course of her hospitalization. Internal medicine was consulted for perioperative medical management. The patient worked with physical therapy and did relatively well. She ultimately was cleared for discharge home. Plan - Discharge Summary Discharge Rx Participant: Yes New Discharge Prescriptions: New Apixaban [Eliquis] 2.5 mg PO BID 30 Days #60 tab Omeprazole [PriLOSEC] 40 mg PO DAILY #30 cap HYDROcodone/APAP 5-325MG [Rexford 5-325] 1 - 2 tab PO Q6HR PRN #32 tab PRN Reason: Pain Docusate [Colace] 100 mg PO BID #28 capsule Doxycycline Monohydrate 100 mg PO BID #28 cap Continue Rosuvastatin [Crestor] 20 mg PO DAILY Biotin [Gnfm-Mhkr-Lindm] 10,000 mcg PO DAILY Calcium Carbonate/Vitamin D3 [Calcium 500 mg Chewable Tablet] 2 tab PO DAILY Aspirin 81 mg PO DAILY Metoprolol Tartrate [Lopressor] 50 mg PO BID Multivitamin [Multivitamins Adult Gummies] 1 tab PO DAILY Ascorbic Acid [Vitamin C] 4 tab PO DAILY Mupirocin [Bactroban Nasal Ointment 2% (with applicator)] 1 applic TOPICAL TID Acetaminophen [Tylenol Arthritis] 1 tab PO Q6HR PRN PRN Reason: Pain No Action Etodolac [Lodine] 400 mg PO BID Discharge Medication List Acetaminophen [Tylenol Arthritis] 1 tab PO Q6HR PRN 09/05/23 [History] Ascorbic Acid [Vitamin C] 4 tab PO DAILY 09/05/23 [History] Aspirin 81 mg PO DAILY 09/05/23 [History] Biotin [Iqvd-Zauy-Blcru] 10,000 mcg PO DAILY 09/05/23 [History] Calcium Carbonate/Vitamin D3 [Calcium 500 mg Chewable Tablet] 2 tab PO DAILY 09/05/23 [History] Etodolac [Lodine] 400 mg PO BID 09/05/23 [History] Metoprolol Tartrate [Lopressor] 50 mg PO BID 09/05/23 [History] Multivitamin [Multivitamins Adult Gummies] 1 tab PO DAILY 09/05/23 [History] Mupirocin [Bactroban Nasal Ointment 2% (with applicator)] 1 applic TOPICAL TID 09/05/23 [History] Rosuvastatin [Crestor] 20 mg PO DAILY 09/05/23 [History] Apixaban [Eliquis] 2.5 mg PO BID 30 Days #60 tab 09/09/23 [Rx] Docusate [Colace] 100 mg PO BID #28 capsule 09/09/23 [Rx] Doxycycline Monohydrate 100 mg PO BID #28 cap 09/09/23 [Rx] HYDROcodone/APAP 5-325MG [Rexford 5-325] 1 - 2 tab PO Q6HR PRN #32 tab 09/09/23 [Rx] Omeprazole [PriLOSEC] 40 mg PO DAILY #30 cap 09/09/23 [Rx] Follow up Appointment(s)/Referral(s): [facility], [NON-STAFF] - 1-2 Days Kadeem Hood MD [Medical Doctor] - 2 Weeks Activity/Diet/Wound Care/Special Instructions: 1. Weight-bear as tolerated on your operative extremity unless instructed otherwise. Use a walker or other assistive device to ambulate. 2. Leave surgical dressing in place. If your dressing becomes saturated with blood, there is drainage, or the dressing becomes loose please contact the office. 3. It is okay to shower with your surgical dressing, but do not submerge in water (no hot tubs, bath's, swimming etc.) 4. Make sure to take her blood clot prevention medication as prescribed (aspirin, Eliquis, Xarelto, and Plavix are commonly prescribed medications for blood clot prevention) 5. While taking Rexford or Percocet for pain make sure you're taking a stool softener (Colace) and drink lots of water. 6. Keep all follow-up appointments as scheduled. You will usually be seen in 1-2 weeks following surgery. 7. Please contact the office with any questions or concerns [phone] Discharge Disposition: HOME SELF-CARE
[2023-09-13] MEDS: ATORVASTATIN 40 MG TAB PO SCH (08:31)
[2023-09-13] MEDS: METOPROLOL TARTRATE 12.5 MG TAB PO SCH (08:31)
[2023-09-13] MEDS: DOXYCYCLINE 100 MG CAP PO SCH (08:32)
[2023-09-13] MEDS: APIXABAN 2.5 MG TABLET PO SCH (08:32)
[2023-09-13] MEDS: FLUTICASONE 50MCG/SPRAY NASAL 16GM EA NOSTRIL SCH (08:33)
[2023-09-13 08:54] VITALS: BP 103/49; PULSE 82; RESP 15; TEMP 97.8
[2023-09-13] MEDS: hydrOXYzine pamoate 25 MG CAP PO PRN (11:09)
--- NOTE | 2023-09-13 17:59 | P.PN ---
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 She is currently admitted under orthopedic surgery team status post right total knee replacement. Surgical procedure was completed on 09/08/[address] Hood. We have been consulted for medical management throughout patient's hospitalization. Physical exam: Patient seen and fully evaluated at the bedside this morning. Patient reports full resolution of previous reported constipation. She reports moving slowly but steady and denies having any other complaints, concerns, or needs at this time. Vital signs reviewed and stable. General: Nontoxic, no distress and appears stated age. Derm: Skin warm and dry, normal coloration for ethnicity. Head: Atraumatic, normocephalic and symmetric. Eyes: EOMs intact, no lid lag, and anicteric sclera Mouth: no lip lesions, mucus membranes moist Cardiovascular: regular rate and rhythm with normal S1S2, no murmur, positive posterior tibial pulses bilaterally, and cap refill < 2 seconds. Lungs: Respirations even, regular, and unlabored on room air. Lungs CTA bilaterally, no rhonchi, no rales, no wheezing, and no accessory muscle usage. Abdominal: soft, nontender to palpation, no guarding, no appreciable organomegaly Ext: ROM intact. No gross muscle atrophy, no edema, no contractures Neuro: Speech clear, face symmetrical and CN II-XII grossly intact with no noted focal neuro deficits Psych: Alert and oriented to person, place, time, and situation. Appropriate and pleasant affect. Assessment and Plan of Care: Constipation, resolved Patient given milk of magnesia and this morning, discussed with RN patient to receive Dulcolax suppository. Continue with aggressive bowel regimen, monitor I's and O's for resolution of constipation. Acute postoperative blood loss anemia, stable Preoperative hemoglobin of 14.0 postoperative hemoglobin was trended and stable at 11.2, 11.2, and 10.9. This is a staple and expected finding. No active bleeding, no need for further monitoring or interventions. Hypertension Blood pressure stable on current medication regimen. Patient to continue with metoprolol 12.5 mg twice daily Hyperlipidemia Patient to continue with rosuvastatin 20 mg daily. Status post right total knee arthroplasty Management per primary admitting orthopedic surgery team including DVT prophylaxis, pain management, wound/dressing care, weightbearing, and PT/OT. Data reviewed: Vital signs reviewed and stable with blood pressure 103/49, heart rate 82, respiratory rate 15, temp 97.8F, SpO2 of 96% on room air. Patient is medically optimized for discharge with no further needs once cleared by primary admitting orthopedic surgery team. Thank you for allowing us to participate in the care of this pleasant patient. Do not hesitate to contact us with questions. Someone can be reached from the [facility] hospitalist group all hours of the day at [phone] or via [employer]. Patient was seen independently by Nurse Pracitioner. This document was prepared using [employer] dictation software. Please allow for errors in torch straightener, while rare they do occur. Zack Melgar NP rendered care for this patient independently, reviewed the findings and plan as documented in the note above. I did not physically speak with or examine the patient on this date. Objective - Vital Signs Vital signs: Vital Signs Temp 98.4 F 09/13/23 02:00 Pulse 84 09/13/23 02:00 Resp 17 09/12/23 19:30 BP 112/55 09/13/23 02:00 Pulse Ox 94 L 09/13/23 02:00 FiO2 Intake & Output 09/12/23 09/13/23 09/13/23 18:59 06:59 18:59 Intake Total 1080 Balance 1080 Intake: Oral 1080 Other: Voiding Method Toilet # Voids 4 1 # Bowel Movements 1 - Labs CBC & Chem 7: 09/11/23 07:02 09/11/23 07:02 Labs: Microbiology - Last 24 Hours (Table) 09/08/23 14:15 Anaerobic Culture - Preliminary Knee - Right 09/08/23 14:15 Gram Stain - Final Knee - Right Tissue Culture - Final
== END 2023-09-13 15:11 | disposition home or self-care (01) | DRG 467 ==
LOC: EDSTATUS 07:30 → 2ORMAIN 08:39 → 4SSUR 15:28
PROVIDERS: ADMIT Orthopaedic Surgery; ATTEND Orthopaedic Surgery
PROC: 0SPC0JZ Removal of Synthetic Substitute from Right Knee Joint, Open Approach (ICD-10-PCS; principal; 2023-09-08 10:25)
PROC: 0SRC0J9 Replacement of Right Knee Joint with Synthetic Substitute, Cemented, Open Approach (ICD-10-PCS; principal; 2023-09-08 10:25)
DX: T84.032A Mechanical loosening of internal right knee prosthetic joint, initial encounter (principal); D62 Acute posthemorrhagic anemia; D68.52 Prothrombin gene mutation; T84.84XA Pain due to internal orthopedic prosthetic devices, implants and grafts, initial encounter; I10 Essential (primary) hypertension; R03.1 Nonspecific low blood-pressure reading; E78.5 Hyperlipidemia, unspecified; M19.90 Unspecified osteoarthritis, unspecified site; K59.00 Constipation, unspecified; R33.9 Retention of urine, unspecified; D69.6 Thrombocytopenia, unspecified; E66.9 Obesity, unspecified; Z68.39 Body mass index [BMI] 39.0-39.9, adult; Z91.040 Latex allergy status; Z88.1 Allergy status to other antibiotic agents; Z87.891 Personal history of nicotine dependence; Z79.899 Other long term (current) drug therapy; Z79.82 Long term (current) use of aspirin
CPT/HCPCS: 64447; 64999; 80048; 85025; 85027; 87070; 87075; 87102; 87116; 87205; 87206; 87496; 87498; 87529; 87798